=== PATIENT | male | born 1975 | race Caucasian/White ===

== ENCOUNTER → 2016-12-27 | Outpatient (CLI) | payer OTHER ==
[~2016-12-27] VITALS: Ht 172.7 cm; Wt 88.9 kg
[~2016-12-27] MED LIST: OFLO0.3S4 OPL; PRLSR20 PO
[2016-12-27 14:14] VITALS: BP 133/88; PULSE 101; Ht 172.7 cm; Wt 88.9 kg
== END | disposition home or self-care (01) ==
LOC: C.NEUR 13:15
PROVIDERS: ATTEND Internal Medicine Pulmonary Disease
DX: R06.83 Snoring (principal); R06.81 Apnea, not elsewhere classified; R53.83 Other fatigue

== ENCOUNTER → 2017-01-02 | Outpatient (CLI) | payer OTHER ==
--- NOTE | 2017-01-03 07:42 | PAP/PSG TECHNICIAN REPORT ---
[facility] Job Counselor Polysomnogram Report Study name: None Report date: 01/03/2017 Study date: 01/02/2017 Referring Physician: Justin Anthony M.D. Name: ALFRED WALSH Interpreting Physician: Justin Anthony M.D. Date of : 1975 Job Counselor: Edith Lebron RPS. Sex: Male Age: 41 StudyType: PSG Weight: 195 lbs Height: 41 years, Height 5' 8" BMI: 29.65 Medications: Omeprazole 20 mg Patient History 41 yr. old male here for a diagnostic sleep study. Patient complains of snoring, acid reflux, fatigue and witnessed apneas. Patients [place] sleepiness scale score is 16/24. Parameters Monitored NPSG: E1-M2, E2-M1, Fp1-M2, Fp2-M1, F3-M2, F4-M2, F4-M1, C3-M2, C4-M2, C4-M1, O1-M2, O2-M2, O2-M1, T3-M2, T4-M1, P3-M2, P4-M1, CHIN1, CHIN2, HR, EKG, Legs, PFLOW, SNOR, FLOW, CFLOW, Tidal Volume, THOR, ABDO, SpO2, PLTH, CPRESS, ETCO2 Wave, ETCO2, pH Sleep Architecture Sleep Stages Time at Lights Off 8:37:21 PM STAGES Time (min.) TST (%) Time at Lights On 5:36:51 AM Wake 95.0 -- Total Recording Time (TRT) 540.00 min. N1 62.0 14 Total Sleep Period (TSP) 531.5 min. N2 261.5 59 Total Sleep Time (TST) 444.5min. N3 50.5 11 Awake Time 95.0 min. REM 70.5 16 Wake after Sleep Onset 87.0 min. Sleep Efficiency (SE) 82 % Sleep Onset Latency (RON) 8.0 min. Number of Stage 1 Shifts None Awakenings 56 Stage Changes 199 Number of REM periods 3 REM 70.5 16 REM Latency 213.5 min. NREM 374.0 84 Body Position Analysis Supine Right Left Side Prone Vertical Total Sleep Time (min.) 45.9 0.5 277.2 277.74 156.7 4.1 Total Sleep Time (%) 6% 0% 62% 62 32% N/A% Total Sleep Time REM (min.) 0.0 0.0 48.0 None 22.5 0.0 Total Sleep Time NREM (min.) 24.9 0.5 229.2 None 119.4 0.0 Intermittent Wake (min.) 21.1 4.8 50.1 None 14.8 4.1 Total Sleep Period (%) 9% None None None None None Arousals Myoclonus (PLM) * Events Count Index Events Count Index Spontaneous 18 2 Events Awake (PLMW) 136 85.9 Respiratory 23 3.1 Events Asleep w/ Arousal (PLMA) 47 6.3 PLM 45 6 Events Asleep w/o Arousal (PLMS) 636 85.8 Snoring 23 3 Total Asleep 683 92.2 Total 109 15 Total 819 91 Respiratory Analysis * CA OA MA CH H RERA Total Count 4 1 0 0 113 0 118 Index 0.5 0.1 0.0 0 15.3 0 15.9 Mean Duration 13.1 12.4 0.0 0.00 25.4 0.0 24.9 Longest Duration 16.3 12.4 0.0 0.00 0.0 0.0 59.5 Respiratory Event Summary Total Supine ~Supine Right Left Prone REM NREM Apneas Count 5 0 5 0 5 0 0 5 Index 0.7 0 1 0.0 1.1 0 0 1 Hypopneas (4% Desat) Count 113 5 108 0 63 45 6 107 Index 15.3 12.1 15 0.0 13.6 19.0 5.1 17.2 Apneas & All Hypopneas Count 118 5 113 0 68 45 6 112 Index 15.9 12 16 0 15 19 5.1 18.0 Respiratory Events (Paster Operator+All Hyp+RERA) Count 118 5 113 0 68 45 6 112 Index 15.9 12 16 0.0 14.7 19.0 5.1 18.0 Respiratory Related Arousal Count 23 5 20 0 12 8 0 23 Index 3.1 7 3 0 3 3 0 4 Snoring Analysis Supine Right Left Prone REM NREM Total Snore duration 38.4 min Snores count 7 0 965 547 108 1,411 1,519 Snore mean duration 1.5 Sec Snores index 17 0 209 231 91.9 226.4 205.0 TST with snoring (%) 8.6% Desaturation Event Summary: Minimum %SpO2 Event Count Mean/Min/Max Duration(sec.) Desaturation Index % Time In Bed > 90 179 20.4 / 8.3 / 59.0 21.0 95.5 86 - 90 0 N/A 0.0 4.4 81 - 85 1 10.3 / 10.3 / 10.3 110.8 0.1 76 - 80 0 N/A 0.0 0.0 71 - 75 0 N/A 0.0 0.0 66 - 70 0 N/A 0.0 0.0 61 - 65 0 N/A 0.0 0.0 56 - 60 0 N/A 0.0 0.0 51 - 55 0 N/A 0.0 0.0 < 50 0 N/A 0.0 0.0 Total REM NREM Awake <50% 0.0 min. 0.0 min. 0.0 min. 0.0 min. 51 - 60% 0.0 min. 0.0 min. 0.0 min. 0.0 min. 61 - 70% 0.0 min. 0.0 min. 0.0 min. 0.0 min. 71 - 80% 0.0 min. 0.0 min. 0.0 min. 0.0 min. 81 - 90% 23.9 min. 2.0 min. 16.9 min. 5.1 min. 91 - 100% 510.7 min. 68.5 min. 357.0 min. 85.1 min. Average 93 93 93 94 Minimum SpO2 81 89 88 81 Desaturation Event Index 20.0 6.0 21.3 26.5 # Desat. Events below 89% 15 N/A 10 5 Time(%) with Saturation below 89% 0.4 0.0 0.2 0.2 Time(min.) with Saturation below 89% 2.1 0.0 1.0 1.1 Time (mins) REM (mins) NREM (mins) % of TST SpO2 Below 90% 84 4 N80 1.0 SpO2 Below 88% 3 0 0 0 Heart Rate Analysis Min (bpm) Max (bpm) Average (bpm) Awake 44 122 65 NREM 44 82 57 REM 43 72 59 Overall 43 82 57 Supplemental O2 Values Minimum O2 level: None Value Start Time End Time Job Counselor Comments Mr. Walsh slept in the right, left, supine and prone positions. No cardiac arrhythmia. PLMs noted. No bruxism noted. Snoring was noted and scored as a 4 on a scale of 0 through 5. (0=no snoring, 5=snoring loud enough to be heard through a closed door or down the [address]) Mr. Walsh awoke to use the restroom once during the night. Mr. Walsh stated, that was a rough night. The final report will be interpreted and signed by a sleep physician. The completed physician report will then be placed in the patient medical record. Therapy (cm H2O) 0 TIB (min.) 539.5 TST (min.) 444.5 Sleep Onset (min.) 8.0 REM Onset From Sleep (min.) 213.5 Sleep Efficiency % 82 Wakefulness (%) 18 Wakefulness (min.) 95.0 NREM 1 (%) 14 NREM 1 (min.) 62.0 NREM 2 (%) 59 NREM 2 (min.) 261.5 NREM 3 (%) 11 NREM 3 (min.) 50.5 REM (%) 16 REM (min.) 70.5 # Arousals 109 Arousal Index 15 # Snore 1,519 Snore Index 205.0 AHI 15.9 AHI Supine 12 AHI Non-Supine 16 NREM AHI 18.0 REM AHI 5.1 RDI 15.9 # Obstructive Apnea 1 # Central Apnea 4 # Mixed Apnea 0 # Hypopneas 113 RERAs 0 Total Respiratory Events 126 Time Below SpO2 89% (min.) 1.0 Mean NREM SpO2 (%) 93 Mean REM SpO2 (%) 93 Mean Sleep SpO2 (%) 93 Min NREM SpO2 (%) 88 Min REM SpO2 (%) 89 Position Supine (min.) 45.9 Position Non-supine (min.) 419.6 LM Index Sleep 92.2 LM Index NREM 109.1 LM Index REM 2.6 Mean Heart Rate (bpm) 57 Min Heart Rate (bpm) 43
--- NOTE | 2017-01-03 14:27 | POLYSOMNOGRAPH REPORT ---
CLINICAL DATA: 41-year-old male with BMI of 29.65 referred by myself for a diagnostic sleep study with symptoms of snoring, fatigue and witnessed apnea. His [place] sleepiness score was elevated at 16/24. SLEEP ARCHITECTURE: Total sleep period was 531.5 minutes. Total sleep time was 444.5 minutes divided between 374 minutes of non-REM sleep and 70.5 minutes of REM sleep. Sleep onset latency was 8 minutes. REM latency was delayed at 213.5 minutes. Sleep efficiency was 82%. Wake after sleep onset was 87 minutes. Sleep consisted of stage N1 14%, N2 59%, N3 11%, REM 16%. AROUSAL DATA: 109 arousals were recorded for an index of 15 per hour. 23 were due to respiratory events. 45 were due to PLM events. 23 were due to snoring events. PLM DATA: Severe PLMD was noted. There were 683 limb movements during sleep noted for an index of 92.2 per hour with arousal index of 6.3 per hour. RESPIRATORY DATA: Moderate sleep apnea was documented. The AHI was 15.9. There were 4 central and 1 obstructive apneic episodes. The longest apneic episode was 16.3 seconds. There were 130 hypopneic episodes. The mean duration of hypopnea was 25.4 seconds. OXIMETRY DATA: No significant hypoxemia was seen. Oxygen abena was 88% during non-REM sleep. The mean saturation was 93%. EKG: Heart rates ranged from 44-82 beats per minute. No arrhythmias were noted. UTILIZATION SPECIALIST'S COMMENTS: The patient slept in the right, left, supine, and prone positions. Snoring was loud, rated 4 on a scale of 1-5. The patient stated that it was a very rough night. He did have frequent awakenings throughout the night. IMPRESSION: Moderate sleep apnea/hypopnea with an AHI of 15.9. RECOMMENDATIONS: The patient may benefit from the use of an oral appliance, repeat sleep study with CPAP or use of auto CPAP. Clinical correlation is needed. [facility]
== END | disposition home or self-care (01) ==
LOC: C.NEUR 20:00
PROVIDERS: ATTEND Internal Medicine Pulmonary Disease
DX: R53.83 Other fatigue (principal); R06.83 Snoring; R06.81 Apnea, not elsewhere classified

== ENCOUNTER → 2017-01-20 | Outpatient (CLI) | payer OTHER ==
[~2017-01-20] VITALS: Ht 172.7 cm; Wt 76.0 kg
[2017-01-20 14:44] VITALS: BP 137/85; PULSE 76; Ht 172.7 cm; Wt 76.0 kg
== END | disposition home or self-care (01) ==
LOC: C.NEUR 13:05
PROVIDERS: ATTEND Internal Medicine Pulmonary Disease
DX: G47.33 Obstructive sleep apnea (adult) (pediatric) (principal)

== ENCOUNTER → 2017-03-10 | Outpatient (CLI) | payer OTHER ==
[~2017-03-10] VITALS: Ht 172.7 cm; Wt 86.1 kg
[2017-03-10 15:51] VITALS: BP 128/73; PULSE 74; Ht 172.7 cm; Wt 86.1 kg
== END ==
LOC: C.NEUR 15:11
PROVIDERS: ATTEND Internal Medicine Pulmonary Disease
DX: G47.33 Obstructive sleep apnea (adult) (pediatric) (principal); R53.83 Other fatigue; K21.0 Gastro-esophageal reflux disease with esophagitis

== ENCOUNTER → 2017-09-08 | Outpatient (CLI) | payer OTHER ==
[~2017-09-08] VITALS: Ht 172.7 cm; Wt 88.1 kg
[2017-09-08 12:56] VITALS: BP 124/81; PULSE 76; Ht 172.7 cm; Wt 88.1 kg
== END | disposition home or self-care (01) ==
LOC: C.NEUR 12:13
PROVIDERS: ATTEND Internal Medicine Pulmonary Disease
DX: G47.33 Obstructive sleep apnea (adult) (pediatric) (principal); R53.83 Other fatigue

== ENCOUNTER → 2018-03-06 | Outpatient (CLI) | payer OTHER ==
[~2018-03-06] VITALS: Ht 172.7 cm; Wt 91.1 kg
[2018-03-06 12:45] VITALS: BP 131/87; PULSE 72; Ht 172.7 cm; Wt 91.1 kg
== END | disposition home or self-care (01) ==
LOC: C.NEUR 11:55
PROVIDERS: ATTEND Physician Assistant Medical
DX: G47.33 Obstructive sleep apnea (adult) (pediatric) (principal); R06.83 Snoring; R53.83 Other fatigue